=== PATIENT | male | born 2000 | race Hispanic/Latino ===

== ENCOUNTER 2019-04-21 20:54 | Emergency (ER) | payer BC ==
[~2019-04-21] VITALS: Ht 175.3 cm; Wt 83.9 kg
[2019-04-21] MEDS ORDERED: KEFLEX500 MG PO (21:26)
== END 2019-04-21 22:01 | disposition home or self-care (01) ==
LOC: FSED 20:54
DX: R35.0 Frequency of micturition (principal); N30.90 Cystitis, unspecified without hematuria; I10 Essential (primary) hypertension
CPT/HCPCS: 81003; 87086; 87800; 99283